=== PATIENT | male | born 1965 | race Caucasian/White ===

== ENCOUNTER 2016-10-22 12:16 | Emergency (ER) | payer BC ==
[~2016-10-22 12:16] MED LIST: CYCL-36 PO
[2016-10-22 12:17] VITALS: BP 143/88; PULSE 100; RESP 20; TEMP 97.5; O2SAT 95
--- NOTE | 2016-10-22 12:23 | PD ---
Physical Exam Date Seen by Provider: Oct 22, 2016 Time Seen by Provider: 12:22 Data Data Last Documented VS Vital Signs Date Time Temp Pulse Resp B/P Pulse Ox O2 Delivery O2 Flow Rate FiO2 10/22/16 12:17 97.5 100 20 143/88 95 Room Air [facility] Supervised Visit with EDISON: No Narrative Course 51 YO M with complaint of nonproductive cough and cold symptoms since October 10. --F/C. Vitals reviewed. Seen in triage, awaiting bed placement. Heike Devine Oct 22, 2016 12:23
[2016-10-22] MEDS ORDERED: AZIT250T3 PO (13:37)
[2016-10-22] MEDS ORDERED: BENZ100 PO (13:37)
[2016-10-22] MEDS ORDERED: PRED20 PO (13:37)
--- NOTE | 2016-10-22 13:41 | RADRPT ---
EXAM DATE/TIME: 10/22/2016 13:18 [place] COMPARISON: No previous studies available for comparison. INDICATIONS : Cough MEDICAL HISTORY : None. SURGICAL HISTORY : None. ENCOUNTER: Initial ACUITY: 1 day PAIN SCORE: 0/10 LOCATION: Bilateral chest FINDINGS: A single view of the chest demonstrates the lungs to be symmetrically aerated without evidence of mas s, infiltrate or effusion. The cardiomediastinal contours are unremarkable. Osseous structures are intact. CONCLUSION: 1. No acute cardiopulmonary disease. Elder Reynlods MD on October 22, 2016 at 13:39 Board Certified Radiologist. This report was verified electronically.
--- NOTE | 2016-10-22 13:41 | PD ---
HPI Chief Complaint: Cold / Flu Symptoms Time Seen by Provider: 13:38 Travel History International Travel<30 days: No Contact w/Intl Traveler<30days: No Traveled to known affect area: No History of Present Illness HPI 51-year-old male that presents to the ED for evaluation of cold-like symptoms. Per patient she's had dry cough for the past 2 weeks. Per patient is not getting better with aehq-qen-[id number] remedies. Per patient he try to contact his doctor but apparently his out of town. Patient came here to get evaluated. Per patient he also has pus nasal drip and sinus congestion. Cough is for the most part nonproductive. He does have a history of smoking. No COPD or asthma. No chest pain. No pain of any kind. No fevers chills or sweats. No allergies to medication. PFSH Past Medical History Diminished Hearing: No Kidney Stones: Yes Past Surgical History Other Surgery: Yes (LIGAMENT RECONSTRUCTION) Social History Alcohol Use: Yes Tobacco Use: Yes Substance Use: No Allergies-Medications (Allergen,Severity, Reaction): Coded Allergies: No Known Allergies (Unverified , 12/05/15) Reported Meds & Prescriptions Reported Meds & Active Scripts Active Flexeril (Cyclobenzaprine HCl) 10 Mg Tab 10 Mg PO HS PRN Review of Systems Except as stated in HPI: all other systems reviewed are Neg Physical Exam Narrative GENERAL: Well-nourished, well-developed patient in no apparent distress. SKIN: Warm and dry. HEAD: Atraumatic. Normocephalic. EYES: Pupils equal and round reactive to light and accommodation. No scleral icterus. No injection or drainage. ENT: No nasal bleeding or discharge. Mucous membranes pink and moist. TMs are clear with no sign of infection or perforation. No mastoid tenderness. Ear canals are intact bilaterally. No lymphadenopathy. Nostril mucosa is red and moist with clear mucus noted. No sinus tenderness to palpation noted. Tonsils are not enlarged or swollen. No ulvua Deviation. Tongue is midline. NECK: Trachea midline. No JVD. No meningeal signs noted CARDIOVASCULAR: Regular rate and rhythm. RESPIRATORY: No accessory muscle use. Clear to auscultation. Breath sounds equal bilaterally. GASTROINTESTINAL: Abdomen soft, non-tender, nondistended. Hepatic and splenic margins not palpable. MUSCULOSKELETAL: Extremities without clubbing, cyanosis, or edema. No obvious deformities. NEUROLOGICAL: Awake and alert. No obvious cranial nerve deficits. Motor grossly within normal limits. Five out of 5 muscle strength in the arms and legs. Normal speech. PSYCHIATRIC: Appropriate mood and affect; insight and judgment normal. Data Data Last Documented VS Vital Signs Date Time Temp Pulse Resp B/P Pulse Ox O2 Delivery O2 Flow Rate FiO2 10/22/16 12:43 16 16 98 Room Air 10/22/16 12:17 97.5 143/88 Orders Chest, Single Ap (10/22/16 12:38) [facility] Medical Decision Making Medical Screen Exam Complete: Yes Emergency Medical Condition: Yes Medical Record Reviewed: Yes Interpretation(s) Chest x-ray negative for acute disease. Differential Diagnosis Pneumonia versus bronchitis versus sinusitis versus URI Narrative Course 51-year-old male that presents to the ED for evaluation of cold-like symptoms. Patient was properly examined and was found to have signs and symptoms consistent with appears to be bronchitis versus pneumonia. Chest x-ray was ordered and was negative for acute pneumonia. Patient was reassured. This time patient will be discharged home with prescriptions for Tessalon Perles, prednisone, azithromycin. She was told to continue taking OTC meds as needed. Follow up with PCP. See ED if worsening symptoms. Diagnosis Primary Impression: Bronchitis Patient Instructions: General Instructions Additional Instructions: Motrin and Tylenol for pain and fever. You can use [id number] antihistamine as well as well as Mucinex as needed for runny nose and congestion. Cough drops for cough as needed. Drink plenty of fluids. Follow-up with PCP. See ED for worsening symptoms. Med/Other Pt SpecificInfo: Prescription(s) given Scripts Prednisone 20 Mg Tab20 Mg PO BID #10 TAB Prov:Bianca Lynch MD 10/22/16 Benzonatate (Tessalon Perles)100 Mg [id number] Mg PO TID PRN (COUGH) #20 CAP Prov:Bianca Lynch MD 10/22/16 Azithromycin 250 Mg [id number] Mg PO DIRECTED #6 TAB Take 2 tabs (500 mg) on day 1 then 1 tab daily x 4 days. Prov:Bianca Lynch MD 10/22/16 Disposition: 01 DISCHARGE HOME Condition: Stable Remington Mederos Oct 22, 2016 13:41
== END 2016-10-22 14:16 | disposition home or self-care (01) ==
LOC: NEPD 12:16
DX: J40 Bronchitis, not specified as acute or chronic (principal)
CPT/HCPCS: 71010; 99284

== ENCOUNTER 2017-05-06 14:51 | Emergency (ER) | payer BC ==
[~2017-05-06] VITALS: Ht 182.9 cm; Wt 125.0 kg
[~2017-05-06 14:51] MED LIST changes: +AZIT250T3 PO; +BENZ100 PO; -CYCL-36 PO; +PRED20 PO
[2017-05-06 14:54] VITALS: BP 167/88; PULSE 84; RESP 14; TEMP 97.8; O2SAT 95
[2017-05-06] MEDS ORDERED: PERC5TAB12 PO (16:05)
[2017-05-06] MEDS ORDERED: IBUP-232 PO (16:05)
--- NOTE | 2017-05-06 16:05 | PD ---
HPI Chief Complaint: Injury Time Seen by Provider: 15:31 Travel History International Travel<30 days: No Contact w/Intl Traveler<30days: Yes Name of Country Traveled to: [facility] Traveled to known affect area: No History of Present Illness HPI 51-year-old male complains of right triceps pain. He lifted a heavy container from a shelf above his head causing pain. He was on a cruise and had been receiving daily injections which she states were very helpful. The pain has been worsening over the past 2 days following disembarcation. He denies weakness. No other injury to report. Aleve which was taken at home conferred minimal if any benefit. PFSH Past Medical History Diminished Hearing: No Kidney Stones: Yes Past Surgical History Other Surgery: Yes (LIGAMENT RECONSTRUCTION) Social History Alcohol Use: Yes Tobacco Use: Yes Substance Use: No Allergies-Medications (Allergen,Severity, Reaction): Coded Allergies: No Known Allergies (Unverified , 12/05/15) Reported Meds & Prescriptions Reported Meds & Active Scripts Active Percocet (Oxycodone-Acetaminophen) 5-325 mg Tab 1-2 Tab PO Q6H PRN Ibuprofen 600 Mg Tab 600 Mg PO Q8HR PRN 5 Days Prednisone 20 Mg Tab 20 Mg PO BID Tessalon Perles (Benzonatate) 100 Mg Cap 100 Mg PO TID PRN Azithromycin 250 Mg Tab 250 Mg PO DIRECTED Take 2 tabs (500 mg) on day 1 then 1 tab daily x 4 days. Review of Systems General / Constitutional: No: Fever Eyes: No: Diploplia HENT: No: Vertigo Genitourinary: No: Urgency Physical Exam Narrative GENERAL: 51-year-old male no acute distress SKIN: Warm and dry. HEAD: Normocephalic. EYES: No scleral icterus. No injection or drainage. NECK: Supple, trachea midline. No JVD or lymphadenopathy. CARDIOVASCULAR: Regular rate and rhythm without murmurs, gallops, or rubs. RESPIRATORY: Breath sounds equal bilaterally. No accessory muscle use. GASTROINTESTINAL: Abdomen soft, non-tender, nondistended. MUSCULOSKELETAL: No cyanosis, or edema. Tenderness about the triceps on the right side. Active motor function at the pectoralis elbow wrist and shoulders is preserved. Range of motion is normal. BACK: Nontender without obvious deformity. No CVA tenderness. Data Data Last Documented VS Vital Signs Date Time Temp Pulse Resp B/P (MAP) Pulse Ox O2 Delivery O2 Flow Rate FiO2 05/06/17 14:54 97.8 84 14 167/88 (114) 95 Room Air Vital signs reviewed Orders Orders ^ Sling (05/06/17 16:05) Ketorolac Inj (Toradol Inj) (05/06/17 16:15) Oxycodone-Acetamin 5-325 Mg (Percocet (05/06/17 16:15) Ed Discharge Order (05/06/17 16:06) MDM Medical Decision Making Medical Screen Exam Complete: Yes Emergency Medical Condition: Yes Medical Record Reviewed: Yes Differential Diagnosis Dislocation, fracture, tear of tendon ligament or muscle Narrative Course Pain control as below Follow up with ortho Likely will require approx 2 months rehabilitation Diagnosis Primary Impression: Injury of triceps Referrals: Shannon Brody MD call for appointment Med/Other Pt SpecificInfo: Prescription(s) given Scripts Oxycodone-Acetaminophen (Percocet) 5-325 mg Tab 1-2 TAB PO Q6H Y for PAIN SCALE 6 TO 10, #20 TAB 0 Refills Prov: Tigre Scott MD 05/06/17 Ibuprofen (Ibuprofen) 600 Mg Tab 600 MG PO Q8HR Y for PAIN for 5 Days, TAB 0 Refills Prov: Tigre Scott MD 05/06/17 Disposition: 01 DISCHARGE HOME Condition: Stable Tigre Scott MD May 06, 2017 16:05
[2017-05-06] MEDS ORDERED: KETOROLAC TROMETHAMINE 60 MG/2 ML (IM) VIAL IM ONE (16:15)
[2017-05-06] MEDS ORDERED: oxyCODONE/ACETAMINOPHEN 5 MG/325 MG TAB PO ONE (16:15)
== END 2017-05-06 16:41 | disposition home or self-care (01) ==
LOC: NEPD 14:51
DX: S49.91XA Unspecified injury of right shoulder and upper arm, initial encounter (principal); X50.0XXA Overexertion from strenuous movement or load, initial encounter; Z72.0 Tobacco use
CPT/HCPCS: 96372; 99284; J1885